=== PATIENT | male | born 1940 | race Caucasian/White ===

== ENCOUNTER 2018-01-24 13:02 | Emergency (ER) | payer MEDICARE ==
[2018-01-24 13:09] VITALS: RESP 18; TEMP 98.3
[2018-01-24] MEDS ORDERED: MORPHINE SULFATE 4 MG/ML SYRINGE IV STA (13:24)
[2018-01-24] MEDS ORDERED: SODIUM CHLORIDE 0.9% 1,000 ML IV STA ×2 (13:24)
[2018-01-24] MEDS ORDERED: ONDANSETRON 4 MG/2 ML VIAL IVP STA (13:24)
[2018-01-24 14:14] LABS: Basophils % (A) 0 %; Eosinophils # (A) 0.2 k/uL (0-0.7); Eosinophils % (A) 2 %; HCT 43.8 % (39.0-53.0); HGB 15.1 gm/dL (13.0-17.5); Lymphocytes % (A) 10 %; MCH 30.6 pg (25.0-35.0); MCHC 34.4 g/dL (31.0-37.0); MCV 88.9 fL (80.0-100.0); Mean Platelet Volume 7.5; Monocytes # (A) 0.6 k/uL (0-1.0); Monocytes % (A) 6 %; Neutrophils # (A) 8.1 k/uL (1.3-7.7); Neutrophils % (A) 81 %; Platelet Count 237 k/uL (150-450); RBC 4.93 m/uL (4.30-5.90); RDW 12.6 % (11.5-15.5)
[2018-01-24 14:30] LABS: ALT 32 U/L (21-72); AST 21 U/L (17-59); Albumin 3.9 g/dL (3.5-5.0); Alkaline Phosphatase 68 U/L (38-126); Amylase 63 U/L (30-110); Anion Gap 11 mmol/L; Blood Urea Nitrogen 23 mg/dL (9-20); C Reactive Protein <5.0 mg/L (<10.0); Calcium 9.8 mg/dL (8.4-10.2); Carbon Dioxide 25 mmol/L (22-30); Chloride 101 mmol/L (98-107); Glucose 101 mg/dL (74-99); Lipase 38 U/L (23-300); Potassium 4.2 mmol/L (3.5-5.1); Sodium 137 mmol/L (137-145); Total Bilirubin 0.5 mg/dL (0.2-1.3); Total Protein 6.2 g/dL (6.3-8.2)
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
[2018-01-24] MEDS ORDERED: RX INFO: IV CONTRAST WAS GIVEN 1 EACH MISC MISCELLANE PRN (15:19)
[2018-01-24 16:32] VITALS: PULSE 82
--- NOTE | 2018-01-24 16:32 | CT ---
EXAMINATION TYPE: CT abdomen pelvis w con DATE OF EXAM: 01/24/2018 COMPARISON: NONE HISTORY: Abdominal pain and indigestion x2 days CT DLP: 948.2 mGycm Automated exposure control for dose reduction was used. TECHNIQUE: Helical acquisition of images was performed from the lung bases through the pelvis. CONTRAST: Performed without Oral Contrast and with IV Contrast, patient injected with 100 mL of Isovue 300. FINDINGS: LUNG BASES: Peripheral basilar subpleural reticulation, nodularity, and few cystic changes are seen r epresenting mild fibrosis. Pleural parenchymal scarring is also seen in addition to subsegmental atel ectasis. LIVER/GB: Fluid attenuated left hepatic lobe cyst measures 3.3 cm. No intrahepatic biliary ductal dil atation. Gallbladder has anatomic variation in location, however no radiopaque calculi are seen. No c ommon bile duct dilatation is noted. PANCREAS: Punctate calcifications are seen within the pancreas, sequela chronic pancreatitis. Pancrea tic parenchymal atrophy is also seen. No peripancreatic fluid collection or fat stranding is identifi ed. SPLEEN: No significant abnormality is seen. ADRENALS: No significant abnormality is seen. KIDNEYS: The kidneys enhance symmetrically. Left kidney demonstrates a 3.1 cm exophytic lower pole re nal cyst and too small to accurately characterize left renal lesion near the midpole. Too small to ac curately characterize right lower pole renal lesion is also present. FREE AIR: No free air is visualized. ADENOPATHY: None visualized REPRODUCTIVE ORGANS: Prostate gland is diffusely heterogenous containing central zone calcifications. URINARY BLADDER: No significant abnormality is seen. Urachal remnant is incidentally seen. OSSEOUS STRUCTURES: No significant abnormality is seen. BOWEL: Small bowel predominates within the midline and right para midline abdomen, however no small bowel dilatation is identified. Numerous colonic diverticula are present without pericolonic fat stra nding. OTHER: There is a large petite type hernia within the posterior lateral left lower flank containing m esenteric fat and abutting descending colon as well as retroperitoneal fat. VASCULATURE: Just below the SMA at the level of the renal artery and the left best seen on coronal [place] 8 image 61 there is a posterior saccular aneurysm of the abdominal aorta measuring 3.1 cm in ant erior posterior dimension and 2.8 cm in transverse dimension. This aneurysm spans a distance of 3.2 c m in craniocaudal dimension. Moderate calcific and noncalcific atheromatous plaquing is seen in the a bdominal aorta and its branches. IMPRESSION: 1. POSTERIOR SACCULAR ABDOMINAL AORTIC ANEURYSM INFERIOR TO THE SUPERIOR MESENTERIC ARTERY NEAR THE L EVEL OF THE RENAL ARTERIES MEASURING 3.1 X 2.8 CM. 2. LARGE PETITE TYPE LEFT POSTERIOR LATERAL LOWER FLANK HERNIA CONTAINING MESENTERIC FAT, RETROPERITO KRISTAL FAT AND ABUTTING DESCENDING COLON. NO BOWEL OBSTRUCTION. 3. MULTIPLE INCIDENTAL FINDINGS DESCRIBED ABOVE.
[2018-01-24 16:42] LABS: Appearance,Urine Clear (Clear); Bilirubin,Urine Negative (Negative); Blood,Urine Negative (Negative); Color,Urine Light Yellow; Glucose,Urine (UA) Negative (Negative); Ketones,Urine Negative (Negative); Leukocyte Esterase,Urine Negative (Negative); Nitrite,Urine Negative (Negative); PH, Urine 7.5 (5.0-8.0); Protein,Urine Negative (Negative); Specific Gravity,Urine 1.011 (1.001-1.035); Urobilinogen,Urine <2.0 mg/dL (<2.0)
[2018-01-24 18:41] VITALS: BP 115/71
== END 2018-01-24 19:17 | disposition other institution (70) ==
LOC: EC 13:02
DX: I71.4 Abdominal aortic aneurysm, without rupture (principal); E78.5 Hyperlipidemia, unspecified; I10 Essential (primary) hypertension; Z87.891 Personal history of nicotine dependence; Z79.899 Other long term (current) drug therapy
CPT/HCPCS: 99285; 96374; 96375; 36415; 80053; 82150; 83605; 83690; 84484; 85025; 86140; 81003; 74177; 96361 ×5; J2270; J2405; Q9967

== ENCOUNTER 2020-04-18 19:06 | Observation (INO) | payer MEDICARE ==
[2020-04-18] MEDS ORDERED: ONDANSETRON 4 MG/2 ML VIAL IVP STA (19:40)
[2020-04-18] MEDS ORDERED: SODIUM CHLORIDE 0.9% 1,000 ML IV STA (19:40)
[2020-04-18] MEDS ORDERED: MORPHINE SULFATE 4 MG/ML SYRINGE IV STA (19:40)
--- NOTE | 2020-04-18 19:58 | ED ---
Abdominal Pain HPI - General Chief Complaint: Abdominal Pain Stated Complaint: abd pain Time Seen by Provider: 04/18/20 19:28 Source: patient Mode of arrival: ambulatory Limitations: no limitations - History of Present Illness Initial Comments: 79-year-old male patient presents to the emergency department today for evaluation of left-sided abdominal pain. Patient states pain has been present since Friday. States that he has been nauseated with this. He is having normal bowel movements. Denies any new difficulty with urination. Patient states the pain is mostly over the left lower quadrant region. Denies any radiation through to his back. Patient states he does have a known abdominal aortic aneurysm. He did see his primary care physician Dr. Castillo who recommended he come to the emergency department for computed tomography scan. Patient denies any fever or chills. Denies any hematochezia, melena, hematemesis. Patient denies any recent rash, cough, shortness of breath, chest pain, numbness, tingling, dizziness, weakness, hematuria, dysuria, urinary urgency, urinary frequency, headache, visual changes, or any other complaints. - Related Data Home Medications Medication Instructions Recorded Confirmed Lisinopril-Hctz 10-12.5 mg 1 tab PO DAILY 01/24/18 04/18/20 [Zestoretic 10-12.5] Simvastatin [Zocor] 20 mg PO HS 01/24/18 04/18/20 Tamsulosin [Flomax] 0.8 mg PO HS 01/24/18 04/18/20 Aclidinium [place] [Tudorza 1 puff INHALATION RT-BID 04/18/20 04/18/20 Pressair] Albuterol Sulfate [Ventolin HFA] 2 puff INHALATION RT-Q4H PRN 04/18/20 04/18/20 Esomeprazole Magnesium [NexIUM 20 mg PO BID 04/18/20 04/18/20 24Hr] Fluticasone/Umeclidin/Vilanter 2 puff INHALATION RT-DAILY 04/18/20 04/18/20 [Trelegy Ellipta 100-62.5-25] Vitamin E 2,000 unit PO DAILY 04/18/20 04/18/20 Allergies Allergy/AdvReac Type Severity Reaction Status Date / Time No Known Allergies Allergy Verified 04/18/20 23:23 Review of Systems ROS Statement: Those systems with pertinent positive or pertinent negative responses have been documented in the HPI. ROS Other: All systems not noted in ROS Statement are negative. Past Medical History Past Medical History: Hyperlipidemia, Hypertension Additional Past Medical History / Comment(s): [place], chronic back pain History of Any Multi-Drug Resistant Organisms: None Reported Past Surgical History: Orthopedic Surgery Additional Past Surgical History / Comment(s): liver lac, Right ankle Past Psychological History: No Psychological Hx Reported Smoking Status: Never smoker Past Alcohol Use History: None Reported Past Drug Use History: None Reported - Past Family History Father Family Medical History: Asthma Additional Family Medical History / Comment(s): emphysema Mother Additional Family Medical History / Comment(s): of heart attack General Exam Limitations: no limitations General appearance: alert, in no apparent distress, other (physical well- developed, well-nourished adult male patient in no acute distress.) Eye exam: Present: normal appearance, PERRL, EOMI. Absent: scleral icterus, conjunctival injection, periorbital swelling Respiratory exam: Present: normal lung sounds bilaterally. Absent: respiratory distress, wheezes, rales, rhonchi, stridor Cardiovascular Exam: Present: regular rate, normal rhythm, normal heart sounds. Absent: systolic murmur, diastolic murmur, rubs, gallop, clicks GI/Abdominal exam: Present: soft, tenderness (generalized worse over the left lower quadrant), normal bowel sounds. Absent: distended, guarding, rebound, rigid Neurological exam: Present: alert, oriented X3, CN II-XII intact Psychiatric exam: Present: normal affect, normal mood Skin exam: Present: warm, dry, intact, normal color. Absent: rash Course Vital Signs 04/18/20 04/18/20 04/18/20 19:12 20:26 21:47 Temperature 97.8 F 99.2 F 99.4 F Pulse Rate 110 H 90 97 Pulse Rate [ Pulse Oximetery ] Respiratory 18 16 18 Rate Blood Pressure 109/77 125/79 121/77 Blood Pressure [Right Arm] O2 Sat by Pulse 97 96 98 Oximetry 04/18/20 04/18/20 04/19/20 22:50 23:40 00:03 Temperature 99.4 F 98.8 F 98.6 F Pulse Rate 101 H 100 Pulse Rate [ 102 H Pulse Oximetery ] Respiratory 18 18 18 Rate Blood Pressure 104/75 113/76 Blood Pressure 96/54 [Right Arm] O2 Sat by Pulse 97 97 96 Oximetry Medical Decision Making - Medical Decision Making 79-year-old male patient presents to the emergency department today for evaluation of left-sided abdominal pain and nausea. physical examination reveals generalized abdominal tenderness worse on the left side. Labs reviewed and did reveal elevated white blood cell count at 15.8. CT abdomen and pelvis was obtained and was unremarkable. Upon reevaluation patient is still experiencing significant discomfort. He has been given multiple doses of pain medication. We will admit to the hospital for intractable abdominal pain and further evaluation in the morning. He verbalizes understanding and agrees with this plan. - Lab Data Result diagrams: 04/18/20 20:06 04/18/20 20:06 Lab Results 04/18/20 04/18/20 04/18/20 Range/Units 20:06 20:06 20:06 WBC 15.8 H (3.8-10.6) k/uL RBC 5.24 (4.30-5.90) m/uL Hgb 15.6 (13.0-17.5) gm/dL Hct 49.1 (39.0-53.0) % MCV 93.8 (80.0-100.0) fL MCH 29.7 (25.0-35.0) pg MCHC 31.7 (31.0-37.0) g/dL RDW 12.7 (11.5-15.5) % Plt Count 293 (150-450) k/uL Neutrophils % 83 % Lymphocytes % 8 % Monocytes % 6 % Eosinophils % 2 % Basophils % 1 % Neutrophils # 13.1 H (1.3-7.7) k/uL Lymphocytes # 1.2 (1.0-4.8) k/uL Monocytes # 1.0 (0-1.0) k/uL Eosinophils # 0.3 (0-0.7) k/uL Basophils # 0.1 (0-0.2) k/uL PT 10.0 (9.0-12.0) sec INR 1.0 (<1.2) APTT 26.0 (22.0-30.0) sec Sodium 136 L (137-145) mmol/L Potassium 5.2 H (3.5-5.1) mmol/L Chloride 101 (98-107) mmol/L Carbon Dioxide 23 (22-30) mmol/L Anion Gap 12 mmol/L BUN 18 (9-20) mg/dL Creatinine 1.09 (0.66-1.25) mg/dL Est GFR (CKD-EPI)AfAm 75 (>60 ml/min/1.73 sqM) Est GFR (CKD-EPI)NonAf 65 (>60 ml/min/1.73 sqM) Glucose 96 (74-99) mg/dL Plasma Lactic Acid Brayan (0.7-2.0) mmol/L Calcium 10.0 (8.4-10.2) mg/dL Total Bilirubin 0.9 (0.2-1.3) mg/dL AST 26 (17-59) U/L ALT 13 (4-49) U/L Alkaline Phosphatase 94 (38-126) U/L Total Protein 7.3 (6.3-8.2) g/dL Albumin 4.4 (3.5-5.0) g/dL Amylase 101 (30-110) U/L Lipase 223 (23-300) U/L Urine Color Urine Appearance (Clear) Urine pH (5.0-8.0) Ur Specific [place] (1.001-1.035) Urine Protein (Negative) Urine Glucose (UA) (Negative) Urine Ketones (Negative) Urine Blood (Negative) Urine Nitrite (Negative) Urine Bilirubin (Negative) Urine Urobilinogen (<2.0) mg/dL Ur Leukocyte Esterase (Negative) 04/18/20 04/18/20 Range/Units 20:06 21:12 WBC (3.8-10.6) k/uL RBC (4.30-5.90) m/uL Hgb (13.0-17.5) gm/dL Hct (39.0-53.0) % MCV (80.0-100.0) fL MCH (25.0-35.0) pg MCHC (31.0-37.0) g/dL RDW (11.5-15.5) % Plt Count (150-450) k/uL Neutrophils % % Lymphocytes % % Monocytes % % Eosinophils % % Basophils % % Neutrophils # (1.3-7.7) k/uL Lymphocytes # (1.0-4.8) k/uL Monocytes # (0-1.0) k/uL Eosinophils # (0-0.7) k/uL Basophils # (0-0.2) k/uL PT (9.0-12.0) sec INR (<1.2) APTT (22.0-30.0) sec Sodium (137-145) mmol/L Potassium (3.5-5.1) mmol/L Chloride (98-107) mmol/L Carbon Dioxide (22-30) mmol/L Anion Gap mmol/L BUN (9-20) mg/dL Creatinine (0.66-1.25) mg/dL Est GFR (CKD-EPI)AfAm (>60 ml/min/1.73 sqM) Est GFR (CKD-EPI)NonAf (>60 ml/min/1.73 sqM) Glucose (74-99) mg/dL Plasma Lactic Acid Brayan 1.7 (0.7-2.0) mmol/L Calcium (8.4-10.2) mg/dL Total Bilirubin (0.2-1.3) mg/dL AST (17-59) U/L ALT (4-49) U/L Alkaline Phosphatase (38-126) U/L Total Protein (6.3-8.2) g/dL Albumin (3.5-5.0) g/dL Amylase (30-110) U/L Lipase (23-300) U/L Urine Color Light Yellow Urine Appearance Clear (Clear) Urine pH 6.0 (5.0-8.0) Ur Specific [place] 1.019 (1.001-1.035) Urine Protein Negative (Negative) Urine Glucose (UA) Negative (Negative) Urine Ketones Negative (Negative) Urine Blood Negative (Negative) Urine Nitrite Negative (Negative) Urine Bilirubin Negative (Negative) Urine Urobilinogen <2.0 (<2.0) mg/dL Ur Leukocyte Esterase Negative (Negative) - Radiology Data Radiology results: report reviewed CT abdomen and pelvis with contrast was obtained. Report was reviewed in its entirety. Impression by Dr. Panchal shows fibrotic changes and atelectasis of the lung bases slightly worse in old exam. Stable hepatic cyst. Stable left renal cortical cyst. Normal appendix. Stable lateral abdominal wall hernia. Stable sigmoid diverticulosis. 2.8 cm posterior wall abdominal aortic aneurysm. Disposition Clinical Impression: Abdominal pain Disposition: ADMITTED IP TO THIS [facility] Condition: Serious Decision to Admit Reason: Admit from EC Decision Date: 04/18/20 Decision Time: 22:45
[2020-04-18 20:19] LABS: Basophils # (A) 0.1 k/uL (0-0.2); Basophils % (A) 1 %; Eosinophils # (A) 0.3 k/uL (0-0.7); Eosinophils % (A) 2 %; HCT 49.1 % (39.0-53.0); HGB 15.6 gm/dL (13.0-17.5); Lymphocytes # (A) 1.2 k/uL (1.0-4.8); Lymphocytes % (A) 8 %; MCH 29.7 pg (25.0-35.0); MCHC 31.7 g/dL (31.0-37.0); MCV 93.8 fL (80.0-100.0); Monocytes % (A) 6 %; Neutrophils # (A) 13.1 k/uL (1.3-7.7); Neutrophils % (A) 83 %; Platelet Count 293 k/uL (150-450); RBC 5.24 m/uL (4.30-5.90); RDW 12.7 % (11.5-15.5); WBC 15.8 k/uL (3.8-10.6)
[2020-04-18 20:32] LABS: Albumin 4.4 g/dL (3.5-5.0); Potassium 5.2 mmol/L (3.5-5.1); Total Bilirubin 0.9 mg/dL (0.2-1.3); Total Protein 7.3 g/dL (6.3-8.2)
--- NOTE | 2020-04-18 21:25 | CT ---
EXAMINATION TYPE: CT abdomen pelvis w con DATE OF EXAM: 04/18/2020 COMPARISON: 01/24/2018 HISTORY: Abdominal pain CT DLP: 1175.1 mGycm Automated exposure control for dose reduction was used. CONTRAST: Performed with IV Contrast, patient injected with 100 mL of Isovue 300. Images were obtained from the diaphragm to the floor the pelvis with IV contrast. There is some patchy atelectasis at the lung bases and interstitial infiltrate. There is no pleural e ffusion. Gallbladder appears normal. There is 3 cm irregular cyst in the left lobe of the liver. The bile ducts are not dilated. Spleen is intact. Stomach is intact. There is no pancreatic mass. There is no adrenal mass. Kidneys show satisfactory contrast opacification. There is no hydronephrosi s. Ureters are not dilated. There is 3 cm cyst on the lateral left kidney. There is no hydronephrosis . There is large defect on the posterior left lateral abdomen with herniation of intra-abdominal fat laterally. There is no retroperitoneal adenopathy. Abdominal aorta is atheromatous. Bladder distends smoothly. There is prostatic calcification. There is no inguinal hernia. There is no free fluid in th e pelvis. There is numerous sigmoid diverticula. There is no evidence of diverticulitis. Appendix is posterior and appears normal. Lumbar vertebra have normal spacing and alignment. Posterior elements are intact. There is no gama yair fracture. Bony pelvis is intact. There is focal aneurysm on the posterior wall of the upper abdo quintin aorta. Aneurysm measures 2.8 cm. There is minimal thrombus. IMPRESSION: Fibrotic changes and atelectasis at the lung bases slightly worse than old exam. Stable hepatic cysts. Stable left renal cortical cysts. Normal appendix. Stable lateral abdominal wal l hernia. Stable sigmoid diverticulosis..
[2020-04-18] MEDS ORDERED: HYDROmorphone 1 MG/ML 1 ML SYRINGE IVP STA (21:30)
[2020-04-18 21:33] LABS: Appearance,Urine Clear (Clear); Bilirubin,Urine Negative (Negative); Blood,Urine Negative (Negative); Color,Urine Light Yellow; Glucose,Urine (UA) Negative (Negative); Ketones,Urine Negative (Negative); Leukocyte Esterase,Urine Negative (Negative); Nitrite,Urine Negative (Negative); Protein,Urine Negative (Negative); Specific Gravity,Urine 1.019 (1.001-1.035); Urobilinogen,Urine <2.0 mg/dL (<2.0)
[2020-04-18] MEDS ORDERED: ONDANSETRON 4 MG/2 ML VIAL IVP PRN (22:44)
[2020-04-18] MEDS ORDERED: NALOXONE 0.4 MG/ML 1 ML VIAL IV PRN (22:44)
[2020-04-18] MEDS ORDERED: SODIUM CHLORIDE 0.9% 1,000 ML IV SCH (22:45)
[2020-04-19] MEDS ORDERED: ALBUTEROL NEBULIZED 2.5 MG/3 ML INHALATION PRN (01:16)
[2020-04-19] MEDS ORDERED: SODIUM CHLORIDE 0.9% 1,000 ML IV ONE (01:20)
[2020-04-19] MEDS ORDERED: PANTOPRAZOLE 40 MG/10 ML VIAL IVP SCH ×2 (01:32→09:00)
[2020-04-19] MEDS ORDERED: TAMSULOSIN 0.4 MG CAP.ER.24H PO SCH ×2 (01:35→21:00)
[2020-04-19] MEDS: HYDROmorphone 1 MG/ML 1 ML SYRINGE IVP PRN ×2 (01:38→10:31)
[2020-04-19] MEDS: SODIUM CHLORIDE 0.9% 1,000 ML IV SCH ×3 (01:52→22:23)
[2020-04-19 06:04] LABS: Basophils % (A) 0 %; Eosinophils # (A) 0.2 k/uL (0-0.7); Eosinophils % (A) 2 %; HCT 41.6 % (39.0-53.0); HGB 13.3 gm/dL (13.0-17.5); Lymphocytes # (A) 1.4 k/uL (1.0-4.8); Lymphocytes % (A) 10 %; MCH 30.4 pg (25.0-35.0); MCHC 31.9 g/dL (31.0-37.0); MCV 95.3 fL (80.0-100.0); Mean Platelet Volume 7.5; Monocytes # (A) 1.2 k/uL (0-1.0); Monocytes % (A) 9 %; Neutrophils # (A) 10.5 k/uL (1.3-7.7); Neutrophils % (A) 78 %; Platelet Count 236 k/uL (150-450); RBC 4.36 m/uL (4.30-5.90); RDW 12.8 % (11.5-15.5); WBC 13.4 k/uL (3.8-10.6)
[2020-04-19 06:18] LABS: Albumin 3.2 g/dL (3.5-5.0); Calcium 8.5 mg/dL (8.4-10.2); Potassium 5.2 mmol/L (3.5-5.1); Total Bilirubin 0.8 mg/dL (0.2-1.3); Total Protein 5.4 g/dL (6.3-8.2)
[2020-04-19] MEDS: PANTOPRAZOLE 40 MG/10 ML VIAL IVP SCH (07:22)
[2020-04-19] MEDS: SYMBICORT 80-4.5 MCG INHALER INHALATION SCH ×2 (07:53→19:48)
[2020-04-19] MEDS: IPRATROPIUM 0.5 MG/2.5 ML NEBU INHALATION SCH ×4 (07:57→19:48)
--- NOTE | 2020-04-19 11:24 | P.HPIM ---
History of Present Illness This is a pleasant 79 years old male with past medical history of hyperlipidemia, hypertension, chronic back pain, COPD, difficulty hearing. He is a patient of Dr. Leach He presents because of abdominal pain when day duration, pain was in the mid abdomen going to the epigastrium it was about 10/10 in severity associated with some nausea but no vomiting, he had regular bowel movement yesterday. Pain felt like burning but is now much improved with pain medication and almost gone. He is very hard hearing. He denies chest pain or dyspnea. No coughing. No urinary problem area He quit smoking however he secondary smoker through his . No alcohol or illicit drugs Vitals are stable. He has leukocytosis of 15.8 and 13.4 K, sodium 135, potassium 5.2. Rest of CBC, BMP and liver enzymes were unremarkable. Urine analysis is no suspicious of infection. Lipase and amylase are normal. CT of the abdomen and pelvis showing atelectasis of the lung. Stable hepatic cyst. Stable left renal cortical cyst. Normal appendix. Stable lateral abdominal wall hernia. Stable sigmoid diverticulosis in the emergency room her sedated pain medication with morphine and Dilaudid, Zofran and normal saline. Review of Systems CONSTITUTIONAL: No fever, no malaise, no fatigue. HEENT: No recent visual problems or hearing problems. Denied any sore throat. CARDIOVASCULAR: No orthopnea, PND, no palpitations, no syncope. PULMONARY: No shortness of breath, no cough, no hemoptysis. GASTROINTESTINAL: No diarrhea, no nausea, no vomiting, no abdominal pain. Normoactive bowel sounds. NEUROLOGICAL: No headaches, no weakness, no numbness. HEMATOLOGICAL: Denies any bleeding or petechiae. GENITOURINARY: Denies any burning micturition, frequency, or urgency. MUSCULOSKELETAL/RHEUMATOLOGICAL: Denies any joint pain, swelling, or any muscle pain. ENDOCRINE: Denies any polyuria or polydipsia. Past Medical History Past Medical History: Hyperlipidemia, Hypertension Additional Past Medical History / Comment(s): [place], chronic back pain History of Any Multi-Drug Resistant Organisms: None Reported Past Surgical History: Orthopedic Surgery Additional Past Surgical History / Comment(s): liver lac, Right ankle Past Anesthesia/Blood Transfusion Reactions: No Reported Reaction Past Psychological History: No Psychological Hx Reported Smoking Status: Never smoker Past Alcohol Use History: None Reported Past Drug Use History: None Reported - Past Family History Father Family Medical History: Asthma Additional Family Medical History / Comment(s): emphysema Mother Additional Family Medical History / Comment(s): of heart attack Medications and Allergies Home Medications Medication Instructions Recorded Confirmed Type Lisinopril-Hctz 10-12.5 mg 1 tab PO DAILY 01/24/18 04/18/20 History [Zestoretic 10-12.5] Simvastatin [Zocor] 20 mg PO HS 01/24/18 04/18/20 History Tamsulosin [Flomax] 0.8 mg PO HS 01/24/18 04/18/20 History Aclidinium [place] [Tudorza 1 puff INHALATION RT-BID 04/18/20 04/18/20 History Pressair] Albuterol Sulfate [Ventolin HFA] 2 puff INHALATION RT-Q4H PRN 04/18/20 04/18/20 History Esomeprazole Magnesium [NexIUM 20 mg PO BID 04/18/20 04/18/20 History 24Hr] Fluticasone/Umeclidin/Vilanter 2 puff INHALATION RT-DAILY 04/18/20 04/18/20 History [Trelegy Ellipta 100-62.5-25] Vitamin E 2,000 unit PO DAILY 04/18/20 04/18/20 History Allergies Allergy/AdvReac Type Severity Reaction Status Date / Time No Known Allergies Allergy Verified 04/18/20 23:23 Physical Exam Vitals: Vital Signs Temp Pulse Pulse Resp BP BP Pulse Ox 04/19/20 11:10 92 04/19/20 11:02 88 04/19/20 07:26 98 F 93 16 123/59 98 04/19/20 06:11 84 04/19/20 06:02 84 04/19/20 03:45 98.2 F 86 17 97/62 98 04/19/20 00:03 98.6 F 102 H 18 96/54 96 04/18/20 23:40 98.8 F 100 18 113/76 97 04/18/20 22:50 99.4 F 101 H 18 104/75 97 04/18/20 21:47 99.4 F 97 18 121/77 98 04/18/20 20:30 18 04/18/20 20:26 99.2 F 90 16 125/79 96 04/18/20 19:12 97.8 F 110 H 18 109/77 97 Intake and Output 04/18/20 04/19/20 04/19/20 22:59 06:59 14:59 Other: Voiding Method Toilet # Voids 2 Weight 87.09 kg 87.09 kg GENERAL: The patient is alert and oriented x3, not in any acute distress. Well developed, well nourished. HEENT: Pupils are round and equally reacting to light. EOMI. No scleral icterus. No conjunctival pallor. Normocephalic, atraumatic. No pharyngeal erythema. No thyromegaly. CARDIOVASCULAR: S1 and S2 present. No murmurs, rubs, or gallops. PULMONARY: Chest is clear to auscultation, no wheezing or crackles. ABDOMEN: Soft, nontender, nondistended, normoactive bowel sounds. No palpable o rganomegaly. MUSCULOSKELETAL: No joint swelling or deformity. EXTREMITIES: No cyanosis, clubbing, or pedal edema. NEUROLOGICAL: Gross neurological examination did not reveal any focal deficits. SKIN: No rashes. No petechiae Results CBC & Chem 7: 04/19/20 05:35 04/19/20 05:35 Labs: Abnormal Lab Results - Last 24 Hours (Table) 04/18/20 04/18/20 04/19/20 Range/Units 20:06 20:06 05:35 WBC 15.8 H 13.4 H (3.8-10.6) k/uL Neutrophils # 13.1 H 10.5 H (1.3-7.7) k/uL Monocytes # 1.2 H (0-1.0) k/uL Sodium 136 L (137-145) mmol/L Potassium 5.2 H (3.5-5.1) mmol/L Total Protein (6.3-8.2) g/dL Albumin (3.5-5.0) g/dL 04/19/20 Range/Units 05:35 WBC (3.8-10.6) k/uL Neutrophils # (1.3-7.7) k/uL Monocytes # (0-1.0) k/uL Sodium 135 L (137-145) mmol/L Potassium 5.2 H (3.5-5.1) mmol/L Total Protein 5.4 L (6.3-8.2) g/dL Albumin 3.2 L (3.5-5.0) g/dL Thrombosis Risk Factor Assmnt - Choose All That Apply Any of the Below Risk Factors Present?: Yes Each Factor Represents 1 point: Abnormal pulmonary function (COPD), Obesity (BMI >25) Other Risk Factors: Yes Each Risk Factor Represents 3 Points: Age 75 years or older Other congenital or acquired thrombophilia - If yes, enter type in comment: No Thrombosis Risk Factor Assessment Total Risk Factor Score: 5 Thrombosis Risk Factor Assessment Level: High Risk Assessment and Plan Assessment: Abdominal pain. With unremarkable CT of the abdomen and pelvis very difficult hearing Secondary smoking problem COPD, not an active issue Hypertension Hyperlipidemia Chronic back pain Plan: This is a pleasant 79 years old male who presents because of abdominal pain, of unclear etiology. CT of the abdomen and pelvis was unremarkable. Surgery team were consulted from ED. We will ask for cardiology evaluation since his mother also had heart disease presented as burning abdominal pain Labs and medication were reviewed.. Continue same treatment. Continue with symptomatic treatment. Resume home medication. Monitor lytes and vitals. DVT and GI prophylaxis. Further recommendations of the clinical course of the patient DVT prophylaxis: Subcutaneous heparin GI Prophylaxis: Ppi prognosis is guarded
--- NOTE | 2020-04-19 14:49 | P.CRDCN ---
History of Present Illness Consult date: 04/19/20 Chief complaint: Epigastric discomfort History of present illness: This is a very pleasant 79-year-old gentleman with history of hypertension and dyslipidemia was somewhat poor historian was admitted to the hospital mainly because of epigastric discomfort. We consulted to see the patient to rule out severe underlying coronary artery disease. The patient did not have any symptoms of chest pain or chest discomfort nor shortness of breath or dizziness or heart racing or syncope. I did review his EKG which was performed bedside and that showed sinus rhythm without any significant ST or T-wave abnormalities. No cardiac enzymes were checked. The rest of his blood work overall came in to be unremarkable except for the potassium which was borderline. The patient is not aware of any prior history of coronary artery disease or congestive heart failure or cardiac arrhythmia and he stated that he never seen a removable prosthodontist in the past. He was seen by the general surgical team and the plan is to pursue with endoscopy tomorrow. At this point I would obtain a serial cardiac enzymes to rule out acute coronary event and also an echocardiogram was Doppler. We'll follow-up with the patient after the endoscopy. If there is no gastrointestinal etiology responsible for his chest discomfort and at that point will think about ruling out severe underlying coronary artery disease Past Medical History Past Medical History: Hyperlipidemia, Hypertension Additional Past Medical History / Comment(s): [place], chronic back pain History of Any Multi-Drug Resistant Organisms: None Reported Past Surgical History: Orthopedic Surgery Additional Past Surgical History / Comment(s): liver lac, Right ankle Past Anesthesia/Blood Transfusion Reactions: No Reported Reaction Past Psychological History: No Psychological Hx Reported Smoking Status: Never smoker Past Alcohol Use History: None Reported Past Drug Use History: None Reported - Past Family History Father Family Medical History: Asthma Additional Family Medical History / Comment(s): emphysema Mother Additional Family Medical History / Comment(s): of heart attack Medications and Allergies Home Medications Medication Instructions Recorded Confirmed Type Lisinopril-Hctz 10-12.5 mg 1 tab PO DAILY 01/24/18 04/18/20 History [Zestoretic 10-12.5] Simvastatin [Zocor] 20 mg PO HS 01/24/18 04/18/20 History Tamsulosin [Flomax] 0.8 mg PO HS 01/24/18 04/18/20 History Aclidinium [place] [Tudorza 1 puff INHALATION RT-BID 04/18/20 04/18/20 History Pressair] Albuterol Sulfate [Ventolin HFA] 2 puff INHALATION RT-Q4H PRN 04/18/20 04/18/20 History Esomeprazole Magnesium [NexIUM 20 mg PO BID 04/18/20 04/18/20 History 24Hr] Fluticasone/Umeclidin/Vilanter 2 puff INHALATION RT-DAILY 04/18/20 04/18/20 History [Trelegy Ellipta 100-62.5-25] Vitamin E 2,000 unit PO DAILY 04/18/20 04/18/20 History Allergies Allergy/AdvReac Type Severity Reaction Status Date / Time No Known Allergies Allergy Verified 04/18/20 23:23 Physical Exam Vitals: Vital Signs Temp Pulse Pulse Resp BP BP Pulse Ox 04/19/20 11:10 92 04/19/20 11:02 88 04/19/20 07:26 98 F 93 16 123/59 98 04/19/20 06:11 84 04/19/20 06:02 84 04/19/20 03:45 98.2 F 86 17 97/62 98 04/19/20 00:03 98.6 F 102 H 18 96/54 96 04/18/20 23:40 98.8 F 100 18 113/76 97 04/18/20 22:50 99.4 F 101 H 18 104/75 97 04/18/20 21:47 99.4 F 97 18 121/77 98 04/18/20 20:30 18 04/18/20 20:26 99.2 F 90 16 125/79 96 04/18/20 19:12 97.8 F 110 H 18 109/77 97 Intake and Output 04/18/20 04/19/20 04/19/20 22:59 06:59 14:59 Other: Voiding Method Toilet # Voids 2 2 Weight 87.09 kg 87.09 kg - Constitutional General appearance: no acute distress - Respiratory Respiratory: bilateral: CTA - Cardiovascular Rhythm: regular Heart sounds: normal: S1, S2 Results 04/19/20 05:35 04/19/20 05:35 Cardiac Enzymes 04/18/20 04/19/20 Range/Units 20:06 05:35 AST 26 20 (17-59) U/L Coagulation 04/18/20 Range/Units 20:06 PT 10.0 (9.0-12.0) sec APTT 26.0 (22.0-30.0) sec CBC 04/18/20 04/19/20 Range/Units 20:06 05:35 WBC 15.8 H 13.4 H (3.8-10.6) k/uL RBC 5.24 4.36 (4.30-5.90) m/uL Hgb 15.6 13.3 (13.0-17.5) gm/dL Hct 49.1 41.6 (39.0-53.0) % Plt Count 293 236 (150-450) k/uL Comprehensive Metabolic Panel 04/18/20 04/19/20 Range/Units 20:06 05:35 Sodium 136 L 135 L (137-145) mmol/L Potassium 5.2 H 5.2 H (3.5-5.1) mmol/L Chloride 101 105 (98-107) mmol/L Carbon Dioxide 23 27 (22-30) mmol/L BUN 18 15 (9-20) mg/dL Creatinine 1.09 1.09 (0.66-1.25) mg/dL Glucose 96 90 (74-99) mg/dL Calcium 10.0 8.5 (8.4-10.2) mg/dL AST 26 20 (17-59) U/L ALT 13 10 (4-49) U/L Alkaline Phosphatase 94 65 (38-126) U/L Total Protein 7.3 5.4 L (6.3-8.2) g/dL Albumin 4.4 3.2 L (3.5-5.0) g/dL Current Medications Generic Name Dose Route Start Last Admin Trade Name Freq PRN Reason Stop Dose Admin Albuterol Sulfate 2.5 mg 04/19/20 01:16 04/19/20 06:00 Ventolin Nebulized INHALATION 2.5 mg RT-Q4H PRN Administration Shortness Of Breath Budesonide/Formoterol Fumarate 2 puff 04/19/20 08:00 04/19/20 07:53 Symbicort 80-4.5 Mcg Inhaler INHALATION 2 puff RT-BID XOCHILT Administration Heparin Sodium (Porcine) 5,000 unit 04/19/20 21:00 Heparin SQ Q12HR XOCHILT Hydromorphone HCl 1 mg 04/18/20 22:44 04/19/20 10:31 Dilaudid IVP 1 mg Q3HR PRN Administration Severe Pain Sodium Chloride 1,000 mls @ 100 mls/hr 04/19/20 01:30 04/19/20 10:33 Saline 0.9% IV 100 mls/hr .Q10H XOCHILT Administration Ipratropium [place] 0.5 mg 04/19/20 08:00 04/19/20 11:02 Atrovent Nebulized INHALATION 0.5 mg RT-QID XOCHILT Administration Naloxone HCl 0.2 mg 04/18/20 22:44 Narcan IV Q2M PRN Opioid Reversal Ondansetron HCl 4 mg 04/18/20 22:44 Zofran IVP Q8HR PRN Nausea And Vomiting Pantoprazole Sodium 40 mg 04/19/20 09:00 04/19/20 07:22 Protonix IVP 40 mg DAILY XOCHILT Administration Tamsulosin HCl 0.8 mg 04/19/20 21:00 Flomax PO HS XOCHILT Intake and Output 04/18/20 04/19/20 04/19/20 22:59 06:59 14:59 Other: Voiding Method Toilet # Voids 2 2 Weight 87.09 kg 87.09 kg 04/19/20 05:35 04/19/20 05:35 Assessment and Plan Assessment: Assessment #1 epigastric discomfort/abdominal discomfort #2 hypertension #3 dyslipidemia Plan #1 rule out acute coronary event #2 obtain serial cardiac enzymes #3 obtain an echocardiogram was Doppler #4 further recommendation to follow the endoscopy
[2020-04-19] MEDS ORDERED: PEG 3350-NA SULF,BICARB,CL/KCL 4,000 ML BOTTLE PO ONE (14:52)
--- NOTE | 2020-04-19 14:52 | P.GSCN ---
History of Present Illness Consult date: 04/19/20 History of present illness: CHIEF COMPLAINT: Epigastric abdominal pain HISTORY OF PRESENT ILLNESS: This is a 79-year-old male who is very hard of hearing. He has a history of hyperlipidemia, hypertension, chronic back pain, COPD and abdominal aortic aneurysm. He presented to the emergency room with complaints of burning epigastric abdominal pain that started on Friday. He reports that the pain has worsened over the last few days. He did have some nausea no actual vomiting. He reports regular bowel movements that was slightly strained yesterday. He reports that the epigastric pain did start to come into the chest and therefore he was concerned and came into the ER for further evaluation. Cardiology is on consult. Patient denies any melena or hematoch ezia. Patient is scheduled for EGD and colonoscopy tomorrow. Patient apparently has never had EGD or colonoscopy completed. PAST MEDICAL HISTORY: See list. PAST SURGICAL HISTORY: See list. MEDICATIONS: See list. ALLERGIES: See list. SOCIAL HISTORY: No illicit drug use. REVIEW OF SYSTEMS: CONSTITUTIONAL: Denies fever or chills. HEENT: Denies blurred vision, vision changes, or eye pain. Denies hemoptysis CARDIOVASCULAR: Denies chest pain or pressure. RESPIRATORY: No shortness of breath. GASTROINTESTINAL: See HPI for pertinent findings HEMATOLOGIC: Denies bleeding disorders. GENITOURINARY: Denies any blood in urine or increased urinary frequency. SKIN: Denies pruitis. Denies rash. PHYSICAL EXAM: VITAL SIGNS: Reviewed GENERAL: Well-developed in no acute distress. HEENT: No sclera icterus. Extraocular movements grossly intact. Moist buccal mucosa. Head is atraumatic, normocephalic. No nasal drainage. ABDOMEN: Soft. Obese. Nondistended. Mild tenderness in epigastric area NEUROLOGIC: Alert and oriented. Cranial nerves II through XII grossly intact. LABORATORY DATA: WBC 15.8-13.4. Hemoglobin 13.3, LFTs normal, lipase 223 UA negative IMAGING: Computed tomography scan of the abdomen and pelvis with contrast radiology reports fibrotic changes and atelectasis at lung bases slightly worse old exam. Stable hepatic cysts. Stable renal cortical cysts. Normal appendix. Stable lateral abdominal wall hernia. Stable sigmoid diverticulosis. ASSESSMENT: 1. Epigastric abdominal pain PLAN: -Patient scheduled for EGD and colonoscopy with Dr. Guillermo tomorrow -will Order GoLYTELY prep -Make patient nothing by mouth after midnight -Awaiting cardiology clearance before proceeding with EGD and colonoscopy Physician [employer] Supervisor note has been reviewed by physician. Signing provider agrees with the documented findings, assessment, and plan of care. Past Medical History Past Medical History: Hyperlipidemia, Hypertension Additional Past Medical History / Comment(s): [place], chronic back pain History of Any Multi-Drug Resistant Organisms: None Reported Past Surgical History: Orthopedic Surgery Additional Past Surgical History / Comment(s): liver lac, Right ankle Past Anesthesia/Blood Transfusion Reactions: No Reported Reaction Past Psychological History: No Psychological Hx Reported Smoking Status: Never smoker Past Alcohol Use History: None Reported Past Drug Use History: None Reported - Past Family History Father Family Medical History: Asthma Additional Family Medical History / Comment(s): emphysema Mother Additional Family Medical History / Comment(s): of heart attack Medications and Allergies Home Medications Medication Instructions Recorded Confirmed Type Lisinopril-Hctz 10-12.5 mg 1 tab PO DAILY 01/24/18 04/18/20 History [Zestoretic 10-12.5] Simvastatin [Zocor] 20 mg PO HS 01/24/18 04/18/20 History Tamsulosin [Flomax] 0.8 mg PO HS 01/24/18 04/18/20 History Aclidinium [place] [Tudorza 1 puff INHALATION RT-BID 04/18/20 04/18/20 History Pressair] Albuterol Sulfate [Ventolin HFA] 2 puff INHALATION RT-Q4H PRN 04/18/20 04/18/20 History Esomeprazole Magn[place] [NexIUM 20 mg PO BID 04/18/20 04/18/20 History 24Hr] Fluticasone/Umeclidin/Vilanter 2 puff INHALATION RT-DAILY 04/18/20 04/18/20 History [Trelegy Ellipta 100-62.5-25] Vitamin E 2,000 unit PO DAILY 04/18/20 04/18/20 History Allergies Allergy/AdvReac Type Severity Reaction Status Date / Time No Known Allergies Allergy Verified 04/18/20 23:23 Surgical - Exam Vital Signs Temp Pulse Resp BP Pulse Ox 97.8 F 110 H 18 109/77 97 04/18/20 19:12 04/18/20 19:12 04/18/20 19:12 04/18/20 19:12 04/18/20 19:12 Results - Labs 04/19/20 05:35 04/19/20 05:35 Abnormal Lab Results - Last 24 Hours (Table) 04/18/20 04/18/20 04/19/20 Range/Units 20:06 20:06 05:35 WBC 15.8 H 13.4 H (3.8-10.6) k/uL Neutrophils # 13.1 H 10.5 H (1.3-7.7) k/uL Monocytes # 1.2 H (0-1.0) k/uL Sodium 136 L (137-145) mmol/L Potassium 5.2 H (3.5-5.1) mmol/L Total Protein (6.3-8.2) g/dL Albumin (3.5-5.0) g/dL 04/19/20 Range/Units 05:35 WBC (3.8-10.6) k/uL Neutrophils # (1.3-7.7) k/uL Monocytes # (0-1.0) k/uL Sodium 135 L (137-145) mmol/L Potassium 5.2 H (3.5-5.1) mmol/L Total Protein 5.4 L (6.3-8.2) g/dL Albumin 3.2 L (3.5-5.0) g/dL Diabetes panel 04/18/20 04/19/20 Range/Units 20:06 05:35 Sodium 136 L 135 L (137-145) mmol/L Potassium 5.2 H 5.2 H (3.5-5.1) mmol/L Chloride 101 105 (98-107) mmol/L Carbon Dioxide 23 27 (22-30) mmol/L BUN 18 15 (9-20) mg/dL Creatinine 1.09 1.09 (0.66-1.25) mg/dL Glucose 96 90 (74-99) mg/dL Calcium 10.0 8.5 (8.4-10.2) mg/dL AST 26 20 (17-59) U/L ALT 13 10 (4-49) U/L Alkaline Phosphatase 94 65 (38-126) U/L Total Protein 7.3 5.4 L (6.3-8.2) g/dL Albumin 4.4 3.2 L (3.5-5.0) g/dL Calcium panel 04/18/20 04/19/20 Range/Units 20:06 05:35 Calcium 10.0 8.5 (8.4-10.2) mg/dL Albumin 4.4 3.2 L (3.5-5.0) g/dL Pituitary panel 04/18/20 04/19/20 Range/Units 20:06 05:35 Sodium 136 L 135 L (137-145) mmol/L Potassium 5.2 H 5.2 H (3.5-5.1) mmol/L Chloride 101 105 (98-107) mmol/L Carbon Dioxide 23 27 (22-30) mmol/L BUN 18 15 (9-20) mg/dL Creatinine 1.09 1.09 (0.66-1.25) mg/dL Glucose 96 90 (74-99) mg/dL Calcium 10.0 8.5 (8.4-10.2) mg/dL Adrenal panel 04/18/20 04/19/20 Range/Units 20:06 05:35 Sodium 136 L 135 L (137-145) mmol/L Potassium 5.2 H 5.2 H (3.5-5.1) mmol/L Chloride 101 105 (98-107) mmol/L Carbon Dioxide 23 27 (22-30) mmol/L BUN 18 15 (9-20) mg/dL Creatinine 1.09 1.09 (0.66-1.25) mg/dL Glucose 96 90 (74-99) mg/dL Calcium 10.0 8.5 (8.4-10.2) mg/dL Total Bilirubin 0.9 0.8 (0.2-1.3) mg/dL AST 26 20 (17-59) U/L ALT 13 10 (4-49) U/L Alkaline Phosphatase 94 65 (38-126) U/L Total Protein 7.3 5.4 L (6.3-8.2) g/dL Albumin 4.4 3.2 L (3.5-5.0) g/dL
[2020-04-19] MEDS: ACETAMINOPHEN TAB 325 MG TAB PO PRN ×2 (17:09→22:32)
[2020-04-19] MEDS: TAMSULOSIN 0.4 MG CAP.ER.24H PO SCH (22:23)
[2020-04-19] MEDS: HEPARIN SODIUM,PORCINE 5,000 UNIT/ML 1 ML VIAL SQ SCH (22:23)
[2020-04-20] MEDS: MIDODRINE 5 MG TAB PO SCH ×5 (02:55→22:58)
[2020-04-20 07:35] LABS: Basophils % (A) 0 %; Eosinophils # (A) 0.3 k/uL (0-0.7); Eosinophils % (A) 4 %; HCT 37.2 % (39.0-53.0); Lymphocytes # (A) 1.3 k/uL (1.0-4.8); Lymphocytes % (A) 15 %; MCHC 32.4 g/dL (31.0-37.0); MCV 95.9 fL (80.0-100.0); Mean Platelet Volume 8.5; Monocytes # (A) 0.8 k/uL (0-1.0); Monocytes % (A) 10 %; Neutrophils # (A) 5.9 k/uL (1.3-7.7); Neutrophils % (A) 70 %; Platelet Count 219 k/uL (150-450); RBC 3.88 m/uL (4.30-5.90); RDW 12.8 % (11.5-15.5); WBC 8.5 k/uL (3.8-10.6)
[2020-04-20 07:45] LABS: Calcium 8.2 mg/dL (8.4-10.2); Potassium 4.6 mmol/L (3.5-5.1)
[2020-04-20] MEDS: IPRATROPIUM 0.5 MG/2.5 ML NEBU INHALATION SCH ×4 (08:01→19:53)
[2020-04-20] MEDS: SYMBICORT 80-4.5 MCG INHALER INHALATION SCH ×2 (08:01→19:53)
[2020-04-20] MEDS: HEPARIN SODIUM,PORCINE 5,000 UNIT/ML 1 ML VIAL SQ SCH ×2 (08:52→20:15)
[2020-04-20] MEDS: PANTOPRAZOLE 40 MG/10 ML VIAL IVP SCH (08:52)
[2020-04-20] MEDS: ACETAMINOPHEN TAB 325 MG TAB PO PRN ×2 (09:06→23:01)
--- NOTE | 2020-04-20 11:30 | ECHOF ---
Referral Reason:CP MEASUREMENTS -------- HEIGHT: 172.7 cm WEIGHT: 87.1 kg BP: RVIDd: 4.4 cm (< 3.3) IVSd: 0.9 cm (0.6 - 1.1) LVIDd: 4.5 cm (3.9 - 5.3) LVPWd: 0.9 cm (0.6 - 1.1) IVSs: 1.3 cm LVIDs: 2.0 cm LVPWs: 2.2 cm LA Diam: 4.4 cm (2.7 - 3.8) LAESV Index (A-L): 33.45 ml/m Ao Diam: 3.1 cm (2.0 - 3.7) AV Cusp: 2.1 cm (1.5 - 2.6) LA Diam: 3.9 cm (2.7 - 3.8) MV EXCURSION: 16.659 mm (> 18.000) MV EF SLOPE: 65 mm/s (70 - 150) EPSS: 0.3 cm MV E Jw: 0.98 m/s MV DecT: 160 ms MV A Jw: 0.73 m/s MV E/A Ratio: 1.34 RAP: 5.00 mmHg RVSP: 43.02 mmHg FINDINGS -------- Sinus rhythm. This was a technically adequate study. LV size, wall thickness and systolic function are normal, with an EF greater than 55%. The left natividad tricular size is normal. The right ventricle is moderately enlarged. The left atrial size is normal. Normal LA size by volume 22+/-6 ml/m2. The right atrial size is normal. There is mild aortic valve sclerosis. There is no evidence of aortic regurgitation. Mild mitral regurgitation is present. Mild tricuspid regurgitation present. There is mild pulmonary hypertension. There is no pulmonic regurgitation present. The aortic root size is normal. There is no pericardial effusion. CONCLUSIONS -------- 1. LV size, wall thickness and systolic function are normal, with an EF greater than 55%. 2. The left ventricular size is normal. 3. The right ventricle is moderately enlarged. 4. The left atrial size is normal. 5. Normal LA size by volume 22+/-6 ml/m2. 6. The right atrial size is normal. 7. There is mild aortic valve sclerosis. 8. Mild mitral regurgitation is present. 9. Mild tricuspid regurgitation present. 10. There is mild pulmonary hypertension. 11. There is no pulmonic regurgitation present. SUPERVISOR GEAR REPAIR: Imelda Tan RDCS
--- NOTE | 2020-04-20 11:52 | P.PN ---
Subjective Progress Note Date: 04/20/20 CHIEF COMPLAINT: Epigastric abdominal pain HISTORY OF PRESENT ILLNESS: Patient is being followed for gastric abdominal pain. He was initially scheduled for both EGD and colonoscopy today. However he had some hypotension and bradycardia this morning. Medicine ordered fluid bolus and place patient on midodrine. Repeat blood pressure 111/69 and heart rate 52. Patient is scheduled for an echo today. Discussed case with cardiology and they have put him to proceed with EGD. We will continue to hold off on colonoscopy. Patient still having stool. Patient complaining of epigastric pain. Some nausea. Afebrile. WBC normalized 8.5 hemoglobin 12 PHYSICAL EXAM: VITAL SIGNS: Reviewed. GENERAL: Well-developed in no acute distress. HEENT: No sclera icterus. Extraocular movements grossly intact. Moist buccal mucosa. Head is atraumatic, normocephalic. ABDOMEN: Soft. Nondistended. Epigastric tenderness NEUROLOGIC: Alert and oriented. Cranial nerves II through XII grossly intact. ASSESSMENT: 1. Epigastric abdominal pain 2. Hypotension: improved with IV fluids. Medicine added Midodrine 3. Bradycardia PLAN: -Patient scheduled for EGD today -colonoscopy canceled for today patient is still having stools -Patient being followed by cardiology Physician Production Line Technician note has been reviewed by physician. Signing provider agrees with the documented findings, assessment, and plan of care. Objective - Vital Signs Vital signs: Vital Signs Temp 97.6 F 04/20/20 08:42 Pulse 52 L 04/20/20 09:29 Resp 16 04/20/20 08:42 BP 111/69 04/20/20 09:29 Pulse Ox 97 04/20/20 08:42 Intake & Output 04/19/20 04/20/20 04/20/20 18:59 06:59 18:59 Intake Total 700 Balance 700 Intake: Oral 700 Other: Voiding Method Toilet Toilet Toilet # Voids 2 - Labs CBC & Chem 7: 04/20/20 06:50 04/20/20 06:50 Labs: Abnormal Lab Results - Last 24 Hours (Table) 04/20/20 04/20/20 Range/Units 06:50 06:50 RBC 3.88 L (4.30-5.90) m/uL Hgb 12.0 L (13.0-17.5) gm/dL Hct 37.2 L (39.0-53.0) % Sodium 134 L (137-145) mmol/L Calcium 8.2 L (8.4-10.2) mg/dL
--- NOTE | 2020-04-20 12:16 | P.PN ---
Subjective Progress Note Date: 04/20/20 Principal diagnosis: Epigastric discomfort This is a very pleasant 79-year-old gentleman with history of hypertension and dyslipidemia was somewhat poor historian was admitted to the hospital mainly because of epigastric discomfort. We consulted to see the patient to rule out s evere underlying coronary artery disease. The patient did not have any symptoms of chest pain or chest discomfort nor shortness of breath or dizziness or heart racing or syncope. I did review his EKG which was performed bedside and that showed sinus rhythm without any significant ST or T-wave abnormalities. No cardiac enzymes were checked. The rest of his blood work overall came in to be unremarkable except for the potassium which was borderline. The patient was seen today April. He denies any chest pain or chest discomfort but continues to have epigastric discomfort. The echo revealed normal LV function. He is going to have upper endoscopy later on today and from the cardiac standpoint of view, the patient can proceed with the procedure. Further recommendation to follow that Objective - Vital Signs Vital signs: Vital Signs Temp 97.6 F 04/20/20 08:42 Pulse 52 L 04/20/20 09:29 Resp 16 04/20/20 08:42 BP 111/69 04/20/20 09:29 Pulse Ox 97 04/20/20 08:42 Intake & Output 04/19/20 04/20/20 04/20/20 18:59 06:59 18:59 Intake Total 700 Balance 700 Intake: Oral 700 Other: Voiding Method Toilet Toilet Toilet # Voids 2 - Constitutional General appearance: Present: no acute distress - Respiratory Respiratory: bilateral: CTA - Cardiovascular Rhythm: regular - Labs CBC & Chem 7: 04/20/20 06:50 04/20/20 06:50 Labs: Abnormal Lab Results - Last 24 Hours (Table) 04/20/20 04/20/20 Range/Units 06:50 06:50 RBC 3.88 L (4.30-5.90) m/uL Hgb 12.0 L (13.0-17.5) gm/dL Hct 37.2 L (39.0-53.0) % Sodium 134 L (137-145) mmol/L Calcium 8.2 L (8.4-10.2) mg/dL Assessment and Plan Assessment: Assessment #1 epigastric discomfort/abdominal discomfort #2 hypertension #3 dyslipidemia Plan #1 rule out acute coronary event will follow-up with the serial cardiac enzymes #2 follow-up after the endoscopy.
[2020-04-20] MEDS: SODIUM CHLORIDE 0.9% 1,000 ML IV SCH (12:17)
[2020-04-20] MEDS ORDERED: LIDOCAINE 1% INJ 10MG/ML (20 ML MDV) ONE (12:43)
[2020-04-20] MEDS ORDERED: PROPOFOL 10 MG/ML 20 ML VIAL IV ONE (12:43)
[2020-04-20] MEDS ORDERED: IV FLUID CONTINUATION 1,000 ML IV ONE (12:44)
--- NOTE | 2020-04-20 12:56 | P.OP ---
Date of Procedure: 04/20/20 Preoperative Diagnosis: Epigastric pain Postoperative Diagnosis: Antral gastritis Hiatal hernia Procedure(s) Performed: EGD Anesthesia: MAC Surgeon: Rigo Guillermo Pathology: other (Antrum) Condition: stable Disposition: PACU Description of Procedure: Patient's placed on the endoscopy table lateral position. He received IV sedation. The gastro-/oropharynx passed in the esophagus and stomach. Scope was then placed through the pylorus. The first and second portion of the duodenum appeared normal. Scope was then brought back the antrum and this appeared mildly inflamed. A biopsies performed. The scope was unretroflexed and remainder some appeared normal. There was a small hiatal hernia. The GE junction was at 38 7 is. The distal esophagus appeared normal. The proximal esophagus appeared normal. Scope was withdrawn for patient.
--- NOTE | 2020-04-20 19:00 | P.PN ---
Subjective This is a pleasant 79 years old male with past medical history of hyperlipidemia, hypertension, chronic back pain, COPD, difficulty hearing. He is a patient of Dr. Leach He presents because of abdominal pain when day duration, pain was in the mid abdomen going to the epigastrium it was about 10/10 in severity associated with some nausea but no vomiting, he had regular bowel movement yesterday. Pain felt like burning but is now much improved with pain medication and almost gone. He is very hard hearing. He denies chest pain or dyspnea. No coughing. No urinary problem area He quit smoking however he secondary smoker through his . No alcohol or illicit drugs Vitals are stable. He has leukocytosis of 15.8 and 13.4 K, sodium 135, potassium 5.2. Rest of CBC, BMP and liver enzymes were unremarkable. Urine analysis is no suspicious of infection. Lipase and amylase are normal. CT of the abdomen and pelvis showing atelectasis of the lung. Stable hepatic cyst. Stable left renal cortical cyst. Normal appendix. Stable lateral abdominal wall hernia. Stable sigmoid diverticulosis in the emergency room her sedated pain medication with morphine and Dilaudid, Zofran and normal saline. 10/21/2019 Patient is awake and alert, but is tender dyspnea however he still have some abdominal discomfort with some tenderness. Vitals are stable. High W [place] came back to normal, there is some element of hemoglobin delusion. Serial troponins negative. EKG done today showing antral gastritis and hiatal hernia. Patient could not: Colonoscopy because he still have loose stool. Cardiology and surgery on the case. He remains on normal sinus 75 mL/h Review of Systems CONSTITUTIONAL: No fever, no malaise, no fatigue. HEENT: No recent visual problems or hearing problems. Denied any sore throat. CARDIOVASCULAR: No orthopnea, PND, no palpitations, no syncope. PULMONARY: No shortness of breath, no cough, no hemoptysis. GASTROINTESTINAL: No diarrhea, no nausea, no vomiting, no abdominal pain. Normoactive bowel sounds. NEUROLOGICAL: No headaches, no weakness, no numbness. HEMATOLOGICAL: Denies any bleeding or petechiae. GENITOURINARY: Denies any burning micturition, frequency, or urgency. MUSCULOSKELETAL/RHEUMATOLOGICAL: Denies any joint pain, swelling, or any muscle pain. ENDOCRINE: Denies any polyuria or polydipsia Active Medications Generic Name Dose Route Start Last Admin Trade Name Freq PRN Reason Stop Dose Admin Acetaminophen 650 mg 04/19/20 17:06 04/20/20 09:06 Tylenol Tab PO 650 mg Q6HR PRN Administration Fever and/ or Mild Pain Albuterol Sulfate 2.5 mg 04/19/20 01:16 04/19/20 06:00 Ventolin Nebulized INHALATION 2.5 mg RT-Q4H PRN Administration Shortness Of Breath Budesonide/Formoterol Fumarate 2 puff 04/19/20 08:00 04/20/20 08:01 Symbicort 80-4.5 Mcg Inhaler INHALATION 2 puff RT-BID XOCHILT Administration Heparin Sodium (Porcine) 5,000 unit 04/19/20 21:00 04/20/20 08:52 Heparin SQ 5,000 unit Q12HR XOCHILT Administration Sodium Chloride 1,000 mls @ 75 mls/hr 04/19/20 01:30 04/20/20 12:17 Saline 0.9% IV Not Given .[id number] XOCHILT Ipratropium [place] 0.5 mg 04/19/20 08:00 04/20/20 15:50 Atrovent Nebulized INHALATION 0.5 mg RT-QID XOCHILT Administration Midodrine 10 mg 04/20/20 02:45 04/20/20 17:30 Proamatine PO 10 mg QID XOCHILT Administration Naloxone HCl 0.2 mg 04/18/20 22:44 Narcan IV Q2M PRN Opioid Reversal Ondansetron HCl 4 mg 04/18/20 22:44 Zofran IVP Q8HR PRN Nausea And Vomiting Pantoprazole Sodium 40 mg 04/19/20 09:00 04/20/20 08:52 Protonix IVP 40 mg DAILY XOCHILT Administration Tamsulosin HCl 0.8 mg 04/19/20 21:00 04/19/20 22:23 Flomax PO 0.8 mg HS XOCHILT Administration Objective - Vital Signs Vital signs: Vital Signs Temp 97.7 F 04/20/20 15:38 Pulse 80 04/20/20 16:01 Resp 16 04/20/20 15:38 BP 109/61 04/20/20 15:38 Pulse Ox 98 04/20/20 15:50 Intake & Output 08/19/20 08/20/20 08/20/20 18:59 06:59 18:59 Intake Total 700 200 Balance 700 200 Intake: IV 200 Oral 700 Other: Voiding Method Toilet Toilet Toilet # Voids 2 2 # Bowel Movements 1 - Exam GENERAL: The patient is alert and oriented x3, not in any acute distress. Well developed, well nourished. HEENT: Pupils are round and equally reacting to light. EOMI. No scleral icterus. No conjunctival pallor. Normocephalic, atraumatic. No pharyngeal erythema. No thyromegaly. CARDIOVASCULAR: S1 and S2 present. No murmurs, rubs, or gallops. PULMONARY: Chest is clear to auscultation, no wheezing or crackles. ABDOMEN: Soft, nontender, nondistended, normoactive bowel sounds. No palpable organomegaly. MUSCULOSKELETAL: No joint swelling or deformity. EXTREMITIES: No cyanosis, clubbing, or pedal edema. NEUROLOGICAL: Gross neurological examination did not reveal any focal deficits. SKIN: No rashes. no petechiae. - Labs CBC & Chem 7: 04/20/20 06:50 04/20/20 06:50 Labs: Abnormal Lab Results - Last 24 Hours (Table) 04/20/20 04/20/20 Range/Units 06:50 06:50 RBC 3.88 L (4.30-5.90) m/uL Hgb 12.0 L (13.0-17.5) gm/dL Hct 37.2 L (39.0-53.0) % Sodium 134 L (137-145) mmol/L Calcium 8.2 L (8.4-10.2) mg/dL Assessment and Plan Assessment: Abdominal pain. EGD: Antral gastritis. Rule out cardiac causes very difficult hearing Secondary smoking problem COPD, not an active issue Hypertension Hyperlipidemia Chronic back pain Plan: This is a pleasant 79 years old male who presents because of abdominal pain, of unclear etiology. Status post EGD by surgery team.. Surgery team were consulted from ED. follow-up service parts driver recommendation Labs and medication were reviewed.. Continue same treatment. Continue with symptomatic treatment. Resume home medication. Monitor lytes and vitals. DVT and GI prophylaxis. Further recommendations of the clinical course of the patient DVT prophylaxis: Subcutaneous heparin GI Prophylaxis: Ppi prognosis is guarded
[2020-04-20] MEDS: TAMSULOSIN 0.4 MG CAP.ER.24H PO SCH (20:15)
[2020-04-21] MEDS: SODIUM CHLORIDE 0.9% 1,000 ML IV SCH (01:06)
[2020-04-21 06:59] LABS: Calcium 8.4 mg/dL (8.4-10.2); Potassium 4.5 mmol/L (3.5-5.1)
[2020-04-21 07:49] VITALS: BP 110/63; RESP 16; TEMP 98.1
[2020-04-21] MEDS: HEPARIN SODIUM,PORCINE 5,000 UNIT/ML 1 ML VIAL SQ SCH (07:50)
[2020-04-21] MEDS: MIDODRINE 5 MG TAB PO SCH ×2 (07:50→12:08)
[2020-04-21] MEDS: PANTOPRAZOLE 40 MG/10 ML VIAL IVP SCH (07:50)
--- NOTE | 2020-04-21 09:20 | P.PN ---
Subjective Progress Note Date: 04/21/20 CHIEF COMPLAINT: Epigastric abdominal pain HISTORY OF PRESENT ILLNESS: Patient is being followed for epigastric abdominal pain. Patient had EGD done yesterday which had shown mild antral gastritis and a hiatal hernia. Patient reports improvement in abdominal pain. He reports having bowel movements. He is tolerating diet. He is afebrile. PHYSICAL EXAM: VITAL SIGNS: Reviewed. GENERAL: Well-developed in no acute distress. HEENT: No sclera icterus. Extraocular movements grossly intact. Moist buccal mucosa. Head is atraumatic, normocephalic. ABDOMEN: Soft. Nondistended. Epigastric tenderness NEUROLOGIC: Alert and oriented. Cranial nerves II through XII grossly intact. ASSESSMENT: 1. Epigastric abdominal pain likely secondary to mild antral gastritis and hiatal hernia. PLAN: -Recommend omeprazole 20 mg by mouth daily for discharge -Patient had poor bowel prep and was unable to complete the colonoscopy yesterday. Recommend colonoscopy outpatient. -Patient to follow up with Dr. Guillermo in 1 week Physician Firebreak Cutter note has been reviewed by physician. Signing provider agrees with the documented findings, assessment, and plan of care. Objective - Vital Signs Vital signs: Vital Signs Temp 98.1 F 04/21/20 07:48 Pulse 59 L 04/21/20 07:48 Resp 16 04/21/20 07:48 BP 110/63 04/21/20 07:48 Pulse Ox 96 04/21/20 07:48 Intake & Output 04/20/20 04/21/20 04/21/20 18:59 06:59 18:59 Intake Total 200 Balance 200 Intake: IV 200 Other: Voiding Method Toilet Toilet # Voids 2 # Bowel Movements 1 - Labs CBC & Chem 7: 04/20/20 06:50 04/21/20 06:10 Labs: Abnormal Lab Results - Last 24 Hours (Table) 04/21/20 Range/Units 06:10 Chloride 109 H (98-107) mmol/L
[2020-04-21] MEDS: IPRATROPIUM 0.5 MG/2.5 ML NEBU INHALATION SCH ×2 (09:56→11:28)
[2020-04-21] MEDS: SYMBICORT 80-4.5 MCG INHALER INHALATION SCH (09:56)
[2020-04-21 11:31] VITALS: PULSE 62
--- NOTE | 2020-04-21 12:59 | P.PN ---
Subjective Progress Note Date: 04/21/20 Principal diagnosis: Epigastric discomfort This is a very pleasant 79-year-old gentleman with history of hypertension and dyslipidemia was somewhat poor historian was admitted to the hospital mainly because of epigastric discomfort. We consulted to see the patient to rule out s evere underlying coronary artery disease. The patient did not have any symptoms of chest pain or chest discomfort nor shortness of breath or dizziness or heart racing or syncope. I did review his EKG which was performed bedside and that showed sinus rhythm without any significant ST or T-wave abnormalities. No cardiac enzymes were checked. The rest of his blood work overall came in to be unremarkable except for the potassium which was borderline. The patient was seen today April [id number]. He is asymptomatic from the cardiac standpoint overview. He underwent an endoscopy yesterday and that came in to be unremarkable. He would like to be discharged home and have the stress test done as an outpatient. Objective - Vital Signs Vital signs: Vital Signs Temp 98.1 F 04/21/20 07:48 Pulse 62 04/21/20 11:39 Resp 16 04/21/20 07:48 BP 110/63 04/21/20 07:48 Pulse Ox 96 04/21/20 07:48 Intake & Output 04/20/20 04/21/20 04/21/20 18:59 06:59 18:59 Intake Total 200 450 350 Balance 200 450 350 Intake: IV 200 Intake, IV Titration 450 350 Amount IV Fluid Continuation 1, 450 000 ml @ 0 mls/hr IV .[facility] Rx#:[id number] Sodium Chloride 0.9% 1, 350 000 ml @ 75 mls/hr IV . [id number] [facility] Rx#:[id number] Other: Voiding Method Toilet Toilet Toilet # Voids 2 2 # Bowel Movements 1 1 - Constitutional General appearance: Present: no acute distress - Respiratory Respiratory: bilateral: CTA - Cardiovascular Rhythm: regular - Labs CBC & Chem 7: 04/20/20 06:50 04/21/20 06:10 Labs: Abnormal Lab Results - Last 24 Hours (Table) 04/21/20 Range/Units 06:10 Chloride 109 H (98-107) mmol/L Assessment and Plan Assessment: Assessment #1 epigastric discomfort/abdominal discomfort #2 hypertension #3 dyslipidemia Plan #1 the patient can be discharged home
--- NOTE | 2020-04-21 23:58 | P.DS ---
Providers Date of admission: 04/20/20 08:11 Attending physician: Leora Valverde Consults: 04/19/20 11:24 Consult Physician Urgent Consulting Provider: Mick Lehman Consult Reason/Comments: Epigastric abdominal pain, rule out cardiac causes Do you want consulting provider notified?: Yes 04/19/20 11:27 Consult Physician Urgent Consulting Provider: Rigo Guillermo Consult Reason/Comments: abdominal pain. Has not had an egd or colonscopy ever Do you want consulting provider notified?: Yes Primary care physician: Kim Leach Hospital Course: Diagnoses: Abdominal pain. EGD: Antral gastritis. Rule out cardiac causes very difficult hearing Secondary smoking problem COPD, not an active issue Hypertension Hyperlipidemia Chronic back pain Hospital course: This is a pleasant 79 years old male with past medical history of hyperlipidemia, hypertension, chronic back pain, COPD, difficulty hearing. He is a patient of Dr. Leach He presents because of epigastric abdominal pain with mild abdominal tenderness patient was treated symptomatically and IV fluids. CT of the abdomen and pelvis showing atelectasis of the lung. Stable hepatic cyst. Stable left renal cortical cyst. Normal appendix. Stable lateral abdominal wall hernia. Stable sigmoid diverticulosis; Cardiology and surgical services were consulted, patient showed interval improvement in his symptoms and his abdominal pain subsided, on the day of discharge patient has no abdominal pain, no nausea vomiting and was tolerating diet well, and patient wanted to be discharged as an outpatient. EGD was unremarkable except for mild gastritis. Colonoscopy couldn't be done because he had stool running, patient referred for outpatient colonoscopy and he agrees to (risks including but not limited to cancer explained and he verbalized understanding and acceptance). Although patient's symptoms Of gastrointestinal origin, however he reported that his mother had cardiac disease presented aspirin and abdominal pain, cardiology consult was called, serial troponins were negative. Strand Galvanizer for further patient for outpatient stress test upon his request. Yesterday I discussed with daughter at bedside. Patient has a family event or within this weekend and he wants to go home and cardiology cleared him for discharge and outpatient stress test and patient agrees. Problems and management plan were discussed with the patient and he verbalized understanding and acceptance Patient was found stable and can be discharged home and guarded prognosis however he needs follow-up as an outpatient. Patient was instructed to follow up with PCP within one week and patient agrees. Patient agrees to the appointment with surgeon Dr. Sorensen on 04/27. Patient is made aware with cardiology follow- up appointment Dr. Hand on 05/05, and states he wants to call by himself to reschedule Gen: patient is a AAOx3, no distress CVS: S1-S2, RRR, no murmur Lungs: B/L CTA, no wheezing Abdomen: soft, no distention, no tenderness, positive bowel sounds Extremity: no leg edema or induration Time spent more than 35 minutes Patient Condition at Discharge: Serious Plan - Discharge Summary Discharge Rx Participant: No New Discharge Prescriptions: New Omeprazole 20 mg PO DAILY #30 tablet. Midodrine [ProAmatine] 10 mg PO QID #120 tab Acetaminophen Tab [Tylenol] 650 mg PO Q6HR PRN tab PRN Reason: Fever and/ or Mild Pain Continue Tamsulosin [Flomax] 0.8 mg PO HS Simvastatin [Zocor] 20 mg PO HS Vitamin E 2,000 unit PO DAILY Esomeprazole Magnesium [NexIUM 24Hr] 20 mg PO BID Fluticasone/Umeclidin/Vilanter [Trelegy Ellipta 100-62.5-25] 2 puff INHALATION RT-DAILY Albuterol Sulfate [Ventolin HFA] 2 puff INHALATION RT-Q4H PRN PRN Reason: Shortness Of Breath Aclidinium [place] [Tudorza Pressair] 1 puff INHALATION RT-BID SUMAtriptan succinate [Imitrex] 50 mg PO PRN PRN Reason: Headache Discontinued Lisinopril-Hctz 10-12.5 mg [Zestoretic 10-12.5] 1 tab PO DAILY Discharge Medication List Simvastatin [Zocor] 20 mg PO HS 01/24/18 [History] Tamsulosin [Flomax] 0.8 mg PO HS 01/24/18 [History] Aclidinium [place] [Tudorza Pressair] 1 puff INHALATION RT-BID 04/18/20 [Hist ory] Albuterol Sulfate [Ventolin HFA] 2 puff INHALATION RT-Q4H PRN 04/18/20 [History] Esomeprazole Magnesium [NexIUM 24Hr] 20 mg PO BID 04/18/20 [History] Fluticasone/Umeclidin/Vilanter [Trelegy Ellipta 100-62.5-25] 2 puff INHALATION RT-DAILY 04/18/20 [History] Vitamin E 2,000 unit PO DAILY 04/18/20 [History] SUMAtriptan succinate [Imitrex] 50 mg PO PRN 04/20/20 [History] Acetaminophen Tab [Tylenol] 650 mg PO Q6HR PRN tab 04/21/20 [Rx] Midodrine [ProAmatine] 10 mg PO QID #120 tab 04/21/20 [Rx] Omeprazole 20 mg PO DAILY #30 tablet. 04/21/20 [Rx] Follow up Appointment(s)/Referral(s): Mick Lehman MD [STAFF PHYSICIAN] - 05/05/20 1:45 pm (May 05 at 1:40) Kim Leach DO [Primary Care Provider] - 1-2 days Rigo Guillermo MD [STAFF PHYSICIAN] - 04/27/20 2:00 pm (You will need to do colonoscopy as an outpatient) Patient Instructions/Handouts: Omeprazole (By mouth), Midodrine (By mouth), Acute Abdominal Pain (GEN) Activity/Diet/Wound Care/Special Instructions: Heart healthy diet Activity is limited till you see your doctor Discharge Disposition: HOME SELF-CARE
[2020-04-22] MEDS ORDERED: PANTOPRAZOLE 40 MG TABLET PO SCH (09:00)
== END 2020-04-21 14:29 | disposition home or self-care (01) ==
LOC: EC 19:06 → 1SOBS 23:16 → INTOOBSV 04-20 08:11 → OBSVTOIN 04-20 08:11 → UNDODISIN 04-21 14:29
PROVIDERS: ADMIT Hospitalist; ATTEND Hospitalist
PROC: 0DB78ZX Excision of Stomach, Pylorus, Via Natural or Artificial Opening Endoscopic, Diagnostic (ICD-10-PCS; principal; 2020-04-20 12:30)
DX: K29.50 Unspecified chronic gastritis without bleeding (principal); K44.9 Diaphragmatic hernia without obstruction or gangrene; K76.89 Other specified diseases of liver; I95.9 Hypotension, unspecified; J98.11 Atelectasis; I71.4 Abdominal aortic aneurysm, without rupture; K43.9 Ventral hernia without obstruction or gangrene; K57.30 Diverticulosis of large intestine without perforation or abscess without bleeding; D72.829 Elevated white blood cell count, unspecified; E78.5 Hyperlipidemia, unspecified; I10 Essential (primary) hypertension; J44.9 Chronic obstructive pulmonary disease, unspecified; N28.1 Cyst of kidney, acquired; G89.29 Other chronic pain; M54.9 Dorsalgia, unspecified; R00.1 Bradycardia, unspecified; H91.90 Unspecified hearing loss, unspecified ear; E66.9 Obesity, unspecified; Z68.29 Body mass index [BMI] 29.0-29.9, adult; Z79.51 Long term (current) use of inhaled steroids; Z79.899 Other long term (current) drug therapy; Z87.891 Personal history of nicotine dependence; Z77.22 Contact with and (suspected) exposure to environmental tobacco smoke (acute) (chronic); Z82.49 Family history of ischemic heart disease and other diseases of the circulatory system; Z82.5 Family history of asthma and other chronic lower respiratory diseases
CPT/HCPCS: 93005; 96361 ×2; 96372 ×2; 96375 ×2; 96376 ×2; 96374; 99285; 36415; 94640 ×5; 93306; 88305; 80053 ×2; 80048 ×2; 84443; 82150; 83605; 83690; 84484 ×2; 85025 ×3; 85610; 85730; 81003; 88342; 74177; 43239; G0378 ×4; J2270; J1644 ×3; J2405; J2001; J1170 ×2; J2704; C9113 ×3; Q9967